=== PATIENT | male | born 1935 | race Caucasian/White ===

== ENCOUNTER 2019-09-16 14:26 | Outpatient (RCR) | payer OTHER, SELFPAY ==
--- NOTE | 2019-09-16 15:22 | PCPTNOTE ---
Physical Therapy Note 09-16-2019 Orders received for PT evaluation and treatment for lymphedema. Mr. Foley and his came to the PT Department today. He had questions about lymphedema and concerns about what the treatment would be. Discussed with him and educated on what treatment would involve: 2x/week, compression garment to legs. He stated since taking the increased water pill, the swelling in his legs has been less. And he is scheduled for a circulation test for his legs. I did look at his legs, there was slight edema over the ankles and tops of his feet, with redness of the toes, which were warm to touch. After about 25 minutes of discussion with Jitendra, he determined that his legs are OK now and does not want to begin treatment for them. Discussed with him that we will keep the PT order and if wants to pursue treatment, he can call and schedule an evaluation appointment. I issued him my name and the number here, to call for any questions, or to schedule an appointment. Please sign and return this note. Dr. Kristi Levine Date
--- NOTE | 2019-11-23 10:53 | PCPTNOTE ---
PHYSICAL THERAPY DISCHARGE 11-23-2019 Attending Provider: Dr. Kristi Levine Patient:Jitendra Foley Date of :1935 Mr. Foley has not returned for any further treatments since the initial therapy visit and discussion on 09/16/2019, therefore he will be discharged at this time. Thank you for referring [facility] to [facility]. Please review, sign, date and return this discharge summary SCOOTER. I have been updated about the patient's current status and I agree with discharge from the above service at this time. Referring Physician Date
== END 2019-09-18 08:29 | disposition home or self-care (01) ==
LOC: ANHPT 14:26
DX: I89.0 Lymphedema, not elsewhere classified (principal)
CPT/HCPCS: 99199

== ENCOUNTER 2022-06-12 10:51 | Emergency (ER) | payer OTHER, SELFPAY ==
[2022-06-12] VITALS (24 sets, daily range): BP systolic 98–144; BP diastolic 61–93; PULSE 69–83; RESP 9–48; TEMP 36.6; O2SAT 95–100
--- NOTE | ~2022-06-12 | XR_ITS ---
Clinical Indication: Leg swelling, CHF AP and lateral views of the chest: Comparison: 01/14/2019 Findings: There is mild bibasilar pulmonary edema. Cardiomediastinal silhouette is stable, status po st CABG with pacemaker device. Bones and soft tissues are unremarkable. Impression: Mild bibasilar pulmonary edema. Reviewed, dictated and finalized at location . Impression: Mild bibasilar pulmonary edema.
--- NOTE | ~2022-06-12 | US_ITS ---
EXAMINATION: US venous doppler [facility] DATE: 06/12/2022 14:10 INDICATION: Lower limb pain, swelling and erythema TECHNIQUE: Grayscale ultrasound images without and with compression and Doppler ultrasound images of the bilateral lower extremity veins were obtained. COMPARISON: None. FINDINGS: The visualized portions of right common femoral vein, profunda (deep) femoral vein, femoral vein, pop liteal vein, posterior tibial veins, peroneal veins, gastrocnemius vein and greater saphenous vein ou tflow are patent. The visualized portions of left common femoral vein, profunda femoral vein, femoral vein, popliteal v ein, posterior tibial veins, peroneal veins, gastrocnemius vein and greater saphenous vein outflow ar e patent. IMPRESSION: 1. No deep venous thrombosis in either lower limb. Reviewed, dictated and finalized at location L.
--- NOTE | 2022-06-12 12:23 | ECG_ITS ---
Measurements Intervals [place] Rate: 72 P: CO: 0 QRS: 98 QRSD: 170 T: -84 QT: 475 QTc: 521 Interpretive Statements ELECTRONIC ATRIAL PACEMAKER WITH INHIBITION ELECTRONIC VENTRICULAR PACEMAKER FUSION COMPLEXES RIGHT BUNDLE BRANCH BLOCK BASELINE ARTIFACT- I, II, III, AVR, AVL, AVF, V1 NO FURTHER INTERPRETATION IS POSSIBLE ATYPICAL ECG NO PREVIOUS ECG AVAILABLE FOR COMPARISON Electronically Signed On 06-12-2022 12:54:08 CDT by Elie Bell D.O.
[2022-06-12 12:43] LABS: Basophils Percent Auto 0.7 % (0.2-1.2); Eosinophils Absolute Auto 0.6 K/mm3 (0-0.3); Eosinophils Percent Auto 10.1 % (0-4.4); Hematocrit 34.6 % (42.0-52.0); Hemoglobin 10.8 g/dL (14.0-18.0); Immature Granulocyte Absolute 0.04 K/mm3 (0.00-0.031); Immature Granulocyte Percent A 0.7 % (0-0.5); Lymphocytes Absolute Auto 1.56 K/mm3 (0.9-3.2); Lymphocytes Percent Auto 26.4 % (18.3-44.2); Mean Corpuscular HGB Conc 31.2 g/dl (32-36); Mean Corpuscular Hemoglobin 31.2 pg (26-34); Mean Platelet Volume 9.9 fl (7.4-10.4); Monocytes Absolute Auto 0.5 K/mm3 (0.1-0.6); Monocytes Percent Auto 8.8 % (2.6-8.5); Neutrophils Absolute Auto 3.2 K/mm3 (1.3-6.7); Neutrophils Percent Auto 53.3 % (45.5-73.1); Platelet Count Result 152 k/mm3 (150-375); Red Blood Count 3.46 M/mm3 (4.6-6.20); Red Cell Distribution Width 15.6 % (11.5-14.5); White Blood Count 5.9 K/mm3 (4.5-10.0)
[2022-06-12 12:53] LABS: INR 1.3; Prothrombin Time 15.4 Seconds (11.1-14.7)
[2022-06-12 12:54] LABS: Alanine Aminotransferase 14 U/L (6-50); Albumin Level 4.1 g/dL (3.5-5.1); Alkaline Phosphatase 100 U/L (38-126); Anion Gap 6 mmol/L (8-16); Aspartate Amino Transferase 27 U/L (17-59); Blood Urea Nitrogen 31 mg/dL (9-20); Calcium 8.9 mg/dL (8.4-10.2); Carbon Dioxide 27 mmol/L (22-30); Chloride 102 mmol/L (98-107); Estimated CRCL calculation 21 ml/min; Estimated Glomerular Filt Rate 26; Glucose 106 mg/dL (65-110); Partial Thromboplastin Time 32.6 SECONDS (22.3-36.8); Potassium 3.9 mmol/L (3.4-5.0); Sodium 135 mmol/L (137-145)
--- NOTE | 2022-06-12 12:59 | ED.EXTPRO ---
HPI - Extremity Problem General Chief complaint: Extremity Problem,Nontraumatic Stated complaint: leg swelling Time Seen by Provider: 06/12/22 12:26 Source: patient Mode of arrival: ambulatory Limitations: no limitations History of Present Illness HPI Narrative: This is an 87-year-old male that presents to the emergency department for lower extremity edema ongoing over the last several weeks. Reports he has been evaluated by his primary for this. They tried to increase his dose of Lasix, but his swelling continues to worsen. Does report some redness of his lower extremities. Denies fevers, shortness of breath or chest pain. Related Data Home Medications Medication Instructions Recorded Confirmed furosemide 20 mg tablet 60 mg DAILY 06/12/22 Allergies Allergy/AdvReac Type Severity Reaction Status Date / Time Penicillins Allergy Unknown UNKNOWN Verified 06/12/22 12:34 Review of Systems Review of Systems: CONSTITUTIONAL: Denies fever CARDIOVASCULAR: Reports edema. Denies chest pain RESPIRATORY: Denies dyspnea. All systems reviewed & are unremarkable except as noted in HPI and below PMFSH Past Medical History Medical History (Updated 06/12/22 @ 16:16 by Karen Benavides PA-C) History of gastroesophageal reflux (GERD) History of hyperlipidemia History of hypertension History of hypothyroidism Social History Social History (Updated 06/12/22 @ 15:17 by Karen Benavides PA-C) Smoking status: Never smoker Exam Narrative: GENERAL: Well-appearing, well-nourished, and in no acute distress. HEAD: Normocephalic, atraumatic. EYES: EOMI. ENT: Mucous membranes moist. Oropharynx without tonsillar hypertrophy exudate or other lesions. NECK: Supple. No adenopathy or masses. CHEST: Mild rales in the bilateral lower lobes. No respiratory distress. No wheezes or rhonchi HEART: Regular rate and rhythm. No murmur heard. Normal peripheral pulses. EXTREMITIES: Normal range of motion. 2+ pitting edema to the bilateral lower extremities with mild overlying redness. Normal DP pulses SKIN: Warm, dry, no rash. NEURO: No focal deficits. Alert and oriented x3. PSYCH: Normal mood and affect Course Course Emergency Course: Patient and family updated on work-up. Offered admission for further diuresis. He does not wish to stay in the hospital at this time Consultations Consultation #1: Spoke with patient's primary about work-up. It does appear that his kidney function is about around baseline based on his previous labs they have. Reports he has responded to adding on metolazone in the past, but wanted to check this with nephrology before starting it Date: 06/12/22 Consultation #2: Spoke with patient's manager medical device, Dr. Dawn about patient and work-up. Patient will be started on metolazone 2.5 daily for the next week. He is then to call and check in for further management. He does have a follow up appointment scheduled Date: 06/12/22 Vital Signs Vital signs: Vital Signs Temperature 97.8 F 06/12/22 11:41 Pulse Rate 69 06/12/22 11:41 Respiratory Rate 14 06/12/22 11:41 Blood Pressure 98/61 L 06/12/22 11:41 Pulse Oximetry 99 06/12/22 11:41 Oxygen Delivery Room Air 06/12/22 11:41 Temperature 97.8 F 06/12/22 11:41 Pulse Rate 69 06/12/22 11:41 Respiratory Rate 14 06/12/22 11:41 Blood Pressure 98/61 L 06/12/22 11:41 Pulse Oximetry 99 06/12/22 11:41 Oxygen Delivery Room Air 06/12/22 11:41 MDM - Extremity (Nontraumatic) MDM Narrative Medical decision making narrative: Patient presents emergency department for lower extremity edema ongoing over the last couple of weeks. He denies any chest pain or shortness of breath. There is mild overlying redness bilaterally which is consistent with venous stasis changes. I do not suspect cellulitis at this time. He is afebrile and nontoxic-appearing. CBC without leukocytosis. Metabolic panel does show evidence of chronic kidney disease. Noted
[2022-06-12 13:05] LABS: NT Pro B Type Natriuretic Pept 7650 pg/mL (19.9-100); Troponin I < 0.012 ng/mL (0.000-0.034)
[2022-06-12] MEDS: FUROSEMIDE INJ 40 MG/4 ML VIAL IV PUSH (15:49)
== END 2022-06-12 17:08 | disposition home or self-care (01) ==
PROVIDERS: Emergency Medicine; Emergency Provider Physician Assistant; PCP Family Medicine
DX: R60.0 Localized edema (principal); I10 Essential (primary) hypertension; E78.5 Hyperlipidemia, unspecified; E03.9 Hypothyroidism, unspecified; K21.9 Gastro-esophageal reflux disease without esophagitis
CPT/HCPCS: 36415; 71046; 80053; 83880; 84484; 85025; 85610; 85730; 93005; 93970; 96374; 99284; J1940

== ENCOUNTER 2023-01-28 10:41 | Emergency (ER) | payer OTHER, SELFPAY ==
--- NOTE | ~2023-01-28 | CT_ITS ---
EXAMINATION: CT facial & cervical spine wo DATE: 01/28/2023 14:42 INDICATION: Fall. Left facial bruising, swelling TECHNIQUE: Computed tomography (CT) of the facial bones and maxillofacial region was performed withou t intravenous contrast. Automated exposure control and iterative reconstruction technique were employ ed. Exam dose: 681.00 mGy-cm total exam DLP. COMPARISON: None. FINDINGS: The nasal bones and anterior maxillary spine, frontozygomatic sutures, orbital rims and wal ls, zygomatic arches and maxillary bones are intact with the exception of severe thinning or destruct ion along the posterolateral inferior right maxillary sinus associated with nearly complete opacifica tion of the sinus, suggesting mucocele. 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 There is osteoarthritic change at the right temporal mandibula r joint as well. C1 and C2 are normally aligned and the odontoid process is intact. No fracture or dislocation or lock ed facet or prevertebral soft tissue swelling is detected. Very prominent anterior bridging osteophytes are noted in the cervical region from C3 through T1, wit h multilevel prominent degenerative disc disease and prominent degenerative change or fusion at the a pophyseal joints. Associated with the degenerative disc disease is mild retrolisthesis at C4-5 and C5-6. There is mild anterolisthesis at C3-4 and C6-7 and greater approximate 3 mm, anterolisthesis at C7-T1 . Bilaterally C5-6 prominent uncovertebral joint spurring on the right at C3-4 and C6-7. IMPRESSION: No facial fracture Severe thinning or destruction of the posterolateral inferior wall of the right maxillary sinus assoc iated with nearly complete opacification of the sinus, suggesting mild mucocele Severe cervical spondylosis; no cervical spine fracture is detected Reviewed, dictated and finalized at Location A. Reviewed, dictated and finalized at location B. IMPRESSION: No facial fracture Severe thinning or destruction of the posterolateral inferior wall of the right maxillary sinus associated with nearly complete opacification of the sinus, briceño ggesting mild mucocele Severe cervical spondylosis; no cervical spine fracture is detected
--- NOTE | ~2023-01-28 | CT_ITS ---
EXAMINATION: CT brain wo con DATE: 01/28/2023 14:42 INDICATION: Fall. Left facial bruising, swelling TECHNIQUE: Computed tomography (CT) of the head was performed without intravenous contrast. The mA wa s adjusted according to patient size. Iterative reconstruction technique was employed. Exam dose: 68 1.00 mGy-cm total exam DLP. COMPARISON: 01/14/2019 CT brain FINDINGS: Bilateral vertebral artery, basilar artery and bilateral carotid siphon internal carotid ar rosy calcifications. There is nonspecific diminished attenuation of the cerebral white matter, likely due to chronic small vessel ischemic changes. There is prominent cerebellar and central and cortical cerebral atrophy. No intracranial mass lesion or hemorrhage or cerebrovascular accident is detected. No midline shift o r mass effect. There is mild bilateral basal ganglia calcification, not likely of any clinical signif icance. No subdural or epidural hematoma is detected. There is nearly complete opacification of the right maxillary sinus. There is some thinning and outwa rd expansion of the inferolateral wall of the right maxillary sinus suggesting mucocele. The paranasal sinuses and mastoid air cells are otherwise unremarkable. No fracture or bone destruction of the cranial vault. IMPRESSION: Cerebral atherosclerosis and chronic small vessel ischemic changes of the cerebral white matter Cerebellar and central and cortical cerebral atrophy No acute intracranial finding or skull fracture Extensive opacification of right mastoid sinus with some thinning and outward expansion of the infero lateral wall of the sinus suggesting possible mucocele development Reviewed, dictated and finalized at Location A. Reviewed, dictated and finalized at location B. IMPRESSION: Cerebral atherosclerosis and chronic small vessel ischemic changes of the cerebral white matter Cerebellar and central and cortical cerebral atrophy No acute intracranial finding or skull fracture Extensive opacification of right mastoid sinus with some thinning and outward e xpansion of the inferolateral wall of the sinus suggesting possible mucocele de velopment
[2023-01-28 10:50] VITALS: BP 114/52; PULSE 74; RESP 18; TEMP 36.6; O2SAT 99
--- NOTE | 2023-01-28 12:13 | ED.FALL ---
HPI - Fall General Chief Complaint: Fall Stated Complaint: fall last noc Time Seen by Provider: 01/28/23 12:13 Source: patient and family Mode of arrival: ambulatory Limitations: no limitations History of Present Illness HPI Narrative: 87 years old white female was getting out of his car yesterday at 6 PM tripped in the door and fell on the left side of his body, no loss of consciousness, denies any head injury neck injury or back injury, complaining of laceration at the left lower leg below the knee and multiple abrasions and skin tears on the left upper extremity. Patient's could not take him to the hospital last night because she cannot see at night. Unknown last tetanus shot. Related Data Home Medications Medication Instructions Recorded Confirmed furosemide 20 mg tablet 60 mg DAILY 06/12/22 Allergies Allergy/AdvReac Type Severity Reaction Status Date / Time Penicillins Allergy Unknown UNKNOWN Verified 01/28/23 10:56 Review of Systems Review of Systems: All systems reviewed & are unremarkable except as noted in HPI and below PMFSH Past Medical History Medical History History of gastroesophageal reflux (GERD) History of hyperlipidemia History of hypertension History of hypothyroidism Social History Social History Smoking status: Never smoker Exam Narrative: General appearance: Well-developed, well-nourished Skin: Multiple skin avulsion at the left arm and left forearm. 10 cm laceration, subcutaneous, left lower leg below the knee laterally, 2 cm gapping. Head: Normocephalic, nontraumatic Eyes: Clear conjunctiva ENT: Oropharynx normal, left ear exam showed diffuse hematoma and laceration without gapping, edges well aligned Neck: Supple, nontender Chest and respiratory: Airway patent, no respiratory distress, no accessory muscle use Heart: Regular rate/rhythm Abdomen: Soft, nontender, no organomegaly, quiet bowel sounds Vascular: Normal peripheral pulses, normal capillary refill. Musculoskeletal: Normal range of motion, nontender back Neurologic: Alert and oriented ?3, MEDICARE INSURANCE SPECIALIST is normal as tested, no gross motor deficit Course Vital Signs Vital signs: Vital Signs Temperature 36.6 C 01/28/23 10:50 Pulse Rate 74 01/28/23 10:50 Respiratory Rate 18 01/28/23 10:50 Blood Pressure 114/52 L 01/28/23 10:50 Pulse Oximetry 99 01/28/23 10:50 Oxygen Delivery Room Air 01/28/23 10:50 Temperature 36.6 C 01/28/23 10:50 Pulse Rate 74 01/28/23 10:50 Respiratory Rate 18 01/28/23 10:50 Blood Pressure 114/52 L 01/28/23 10:50 Pulse Oximetry 99 01/28/23 10:50 Oxygen Delivery Room Air 01/28/23 10:50 MDM - Fall MDM Narrative Medical decision making narrative: Patient had a fall at 6 PM last night, which is 18 hours ago, physical examination as above Laceration left leg will be managed by irrigation, Steri-Strips, skin avulsion left upper extremity will be managed by nonadhesive dressing, a tetanus shot ordered, patient will be discharged on Levaquin for possible chondritis secondary to left ear contusion, hematoma and laceration. Differential Diagnosis Differential diagnosis: Likely concussion without loss of consciousness and other (Change facial contusion, facial bone fracture, skin avulsion, leg laceration, ear contusion with hematoma and laceration) Medical Records Attestation: I reviewed the patient's medical records. Imaging Data Attestation: I personally reviewed and interpreted this imaging study as follows: Radiologist's impression: Impressions Head CT 01/28/23 14:55 I
[2023-01-28] MEDS: TETANUS,DIPHTHERIA,AC PERTUSSIS ADULT (0.5 ML) BOOSTRIX IM (13:44)
== END 2023-01-28 15:52 | disposition home or self-care (01) ==
PROVIDERS: Emergency Provider Emergency Medicine; PCP Family Medicine
DX: S81.812A Laceration without foreign body, left lower leg, initial encounter (principal); E78.5 Hyperlipidemia, unspecified; I10 Essential (primary) hypertension; E03.9 Hypothyroidism, unspecified; Z23 Encounter for immunization; W01.0XXA Fall on same level from slipping, tripping and stumbling without subsequent striking against object, initial encounter
CPT/HCPCS: 70450; 70486; 72125; 90471; 90715; 99284

== ENCOUNTER 2023-03-15 08:17 | Observation (INO) | payer OTHER, SELFPAY ==
[2023-03-15] VITALS (11 sets, daily range): BP systolic 102–118; BP diastolic 52–70; PULSE 67–76; RESP 16–28; TEMP 36.3–36.6; O2SAT 95–99; BMI 24.7
--- NOTE | ~2023-03-15 | CT_ITS ---
Non-contrast Head CT History: Head injury COMPARISON: 01/28/2023 Technique: Axial non-contrast imaging of the brain was performed. Dose reduction technique was used on this scan by utilizing automated exposure control and iterative reconstruction technique. The dose -length product (DLP) was 605.33 mGy-cm. Findings: There are bilateral moderate-sized mixed acute and subacute subdural hematomas along the ce rebral convexities, with hyperdense acute hemorrhage predominantly layering posteriorly. Right subdur al hematoma measures 1.9 cm in thickness, and the left subdural hematoma measures 2.1 cm in thickness . No midline shift. No distinct parenchymal abnormality the brain seen. The ventricles are probably m inimally dilated. The calvarium appears normal. There is right maxillary sinus disease, unchanged. T he remaining visualized paranasal sinuses and mastoid air cells are clear. Impression: Moderate bilateral mixed acute and subacute subdural hematomas, as detailed above. No midline shift. Findings discussed with Dr. Lee the time of this reading. Reviewed, dictated and finalized at location [facility]. NOGRAPHER PHYSICAL Impression: Moderate bilateral mixed acute and subacute subdural hematomas, as detailed abo ve. No midline shift. Findings discussed with Dr. Lee the time of this reading.
--- NOTE | ~2023-03-15 | CT_ITS ---
Noncontrast CT scan of the cervical spine Technique: Multiple contiguous axial [address] images of the cervical spine were obtained and rec onstructed in 2D sagittal and coronal planes on the acquisition scanner. Dose reduction technique was used on this scan by utilizing automated exposure control, adjustment of the mA and/or kV according to patient size. The dose-length product (DLP) was 299.36 mGy-cm. Clinical History: Pain Findings: No acute fracture seen. There is minimal grade 1 anterolisthesis of C6 over C7. There are e xtensive flowing, somewhat diffuse anterior osteophytes extending from C3 through C7. There is fusion of the right facet joints from C3 through C5. There is severe degenerative disc narrowing at C5-C6, with moderate degenerative disc change at the remaining cervical levels. There is moderate degenerati ve change at the articulation of the odontoid process with the anterior arch of C1. There is probable mild right neural foraminal narrowing at C2-C3 related to prominent right facet art hropathy. There is right neural foraminal narrowing at C3-C4, again with probable right facet arthrop athy. There is right neural foraminal narrowing at C4-C5, with facet arthropathy. There is bilateral neural foraminal narrowing, left worse than right, at C5-C6, with bilateral facet arthropathy and sma ll disc osteophyte complex. No prevertebral soft tissue swelling. Impression: No acute fracture. Minimal grade 1 anterolisthesis of C6 over C7. Extensive degenerative spondylosis, as well as probable DISH, as detailed above. Reviewed, dictated and finalized at [facility]. [employer] Impression: No acute fracture. Minimal grade 1 anterolisthesis of C6 over C7. Extensive degenerative spondylosis, as well as probable DISH, as detailed above .
--- NOTE | ~2023-03-15 | CT_ITS ---
EXAMINATION: CT abdomen pelvis wo con DATE: 03/15/2023 09:53 INDICATION: Abdominal pain TECHNIQUE: Computed tomography (CT) of the abdomen and pelvis was performed without intravenous contr ast. The dose-length product (DLP) was 912.24 mGy-cm. Automated exposure control and iterative recons truction technique were employed. COMPARISON: 01/14/2019 FINDINGS: Cardiomegaly is noted. There are airspace opacities of the lower lobes and right middle lob e. Small pleural effusions are present. There is a small sliding hiatal hernia. There is moderate int rahepatic and extrahepatic biliary dilatation. There are stones of the common bile duct as well as a 10 mm stone at the ampulla. The gallbladder is mildly distended. There is atrophy of the kidneys. Cys ts of the kidneys measure up to 3 cm on the right. There is a 5 mm nonobstructing stone of the left k idney lower pole. The spleen, pancreas, and adrenal glands are normal. There is a 3.6 cm fusiform inf rarenal abdominal aortic aneurysm with chronic demonstrated dissection. No pathologically enlarged ab dominal or pelvic lymph nodes are identified. No free intraperitoneal gas or evidence of bowel obstru ction. There are chronic diverticula of the urinary bladder including a large diverticulum of the lef t bladder wall. There is mild inflammatory stranding surrounding the urinary bladder. There is severe lumbar spondylosis. IMPRESSION: 1. Choledocholithiasis with moderate intrahepatic and extrahepatic biliary dilatation. 2. Pneumonia of the lower lobes and right middle lobe. 3. Possible cystitis. 4. 3.6 cm fusiform infrarenal abdominal aortic aneurysm. Reviewed, dictated and finalized at location [facility]. [facility]FA[facility]OST[facility] IMPRESSION: 1. Choledocholithiasis with moderate intrahepatic and extrahepatic biliary dila tation. 2. Pneumonia of the lower lobes and right middle lobe. 3. Possible cystitis. 4. 3.6 cm fusiform infrarenal abdominal aortic aneurysm.
--- NOTE | 2023-03-15 08:37 | ED.FALL ---
HPI - Fall General Chief Complaint: Fall Stated Complaint: fall History of Present Illness HPI Narrative: 87-year-old male presenting to the emergency department for evaluation after having 2 falls from bed. Patient states over the last few days he has had decreased p.o. intake. Patient reports he had a fall from bed last night and had another fall from bed this morning. Patient does have multiple skin tears but denies any pain or injury other than the skin tears. Family states the patient has been having worsening dementia and increased gait instability. Patient has had multiple visits to [facility] for falls as well. Related Data Home Medications Medication Instructions Recorded Confirmed furosemide 20 mg tablet 60 mg PO DAILY 06/12/22 03/15/23 allopurinol 100 mg tablet 200 mg PO HS 03/15/23 03/15/23 amiodarone 200 mg tablet 200 mg PO DAILY 03/15/23 03/15/23 calcitriol 0.25 mcg capsule 0.25 mcg PO DAILY 03/15/23 03/15/23 finasteride 5 mg tablet 5 mg PO DAILY 03/15/23 03/15/23 gabapentin 100 mg capsule 100 mg PO HS 03/15/23 03/15/23 levothyroxine 50 mcg tablet 75 mcg PO DAILY 03/15/23 03/15/23 metoprolol succinate 50 mg 50 mg PO DAILY 03/15/23 03/15/23 tablet,extended release 24 hr oxycodone-acetaminophen 10 mg-325 1 tablet PO QID 03/15/23 03/15/23 mg tablet pantoprazole 20 mg tablet,delayed 20 mg PO Q12H 03/15/23 03/15/23 release tamsulosin 0.4 mg capsule 0.4 mg PO DAILY 03/15/23 03/15/23 Allergies Allergy/AdvReac Type Severity Reaction Status Date / Time No Known Allergies Allergy Verified 03/15/23 13:06 Review of Systems Review of Systems: All systems reviewed & are unremarkable except as noted in HPI and below PMFSH Past Medical History Medical History History of gastroesophageal reflux (GERD) History of hyperlipidemia History of hypertension History of hypothyroidism Social History Social History Smoking status: Never smoker Spiritual care concerns: No Exam Narrative: APPEARANCE: Well appearing, no pain, no distress, well-nourished. HEAD: normocephalic, atraumatic. EYES: PERRLA/EOMI, conjunctivae clear. NOSE: Normal no drainage EARS:TMS clear with good light reflex. THROAT: Pharynx clear, no exudate. NECK: Supple. No adenopathy, no masses. RESPIRATORY: Airway patent, respirations nonlabored. Clear to auscultation bilaterally, no rales, rhonchi, wheezing. CARDIOVASCULAR: Regular rate and rhythm without murmurs rubs or gallops. ABDOMINAL: Soft, nontender, nondistended, normal bowel sounds MUSCULOSKELETAL: Moves all extremities. Strength/ROM intact, No edema, No calf tenderness. NEURO: Alert. Cranial nerves II through XII intact. Good gait. Good coordination SKIN: 2 skin tears to left arm and 1 skin tear to right arm Course Course Emergency Course: 87-year-old male presenting to the ED for evaluation after having multiple ground level falls. The skin tears were repaired with Steri-Strips. head CT did show acute versus subacute bilateral subdural hematomas. Patient is DNI DNR. I discussed the option of transfer to a tertiary care center for potential surgery and family does not want to pursue surgery at this time. Family is interested in pursuing comfort care at this time. I did talk to Dr. Henry from Neurosurgery and since the family does not want to pursue surgery and they are fully aware of the risks of declining including seizures and potential he feels the patient can be kept here since there is no surgical issue. Care coordination was consulted and patient will be made comfort care. Patient's abdominal CT also showed evidence of pneumonia, cystitis and of choledocholithiasis. Patient will be treated with Levaquin and Flagyl in the emergency department and the daughter was informed that antibiotics are not typically part of comfort care and that the anti
[2023-03-15 09:22] LABS: Basophils Percent Auto 0.2 % (0.2-1.2); Eosinophils Percent Auto 0.1 % (0-4.4); Hematocrit 30.9 % (42.0-52.0); Hemoglobin 9.9 g/dL (14.0-18.0); Immature Granulocyte Absolute 0.08 K/mm3 (0.00-0.031); Immature Granulocyte Percent A 0.6 % (0-0.5); Lymphocytes Absolute Auto 0.96 K/mm3 (0.9-3.2); Lymphocytes Percent Auto 7.6 % (18.3-44.2); Mean Corpuscular Hemoglobin 31.4 pg (26-34); Mean Corpuscular Volume 98.1 fl (80-100); Mean Platelet Volume 10.5 fl (7.4-10.4); Monocytes Absolute Auto 0.5 K/mm3 (0.1-0.6); Monocytes Percent Auto 3.8 % (2.6-8.5); Neutrophils Absolute Auto 11.1 K/mm3 (1.3-6.7); Neutrophils Percent Auto 87.7 % (45.5-73.1); Platelet Count Result 206 k/mm3 (150-375); Red Blood Count 3.15 M/mm3 (4.6-6.20); White Blood Count 12.6 K/mm3 (4.5-10.0)
[2023-03-15 09:33] LABS: Alanine Aminotransferase 41 U/L (6-50); Albumin Level 3.4 g/dL (3.5-5.1); Alkaline Phosphatase 535 U/L (38-126); Anion Gap 11 mmol/L (8-16); Aspartate Amino Transferase 96 U/L (17-59); Bilirubin,Total 2.9 mg/dL (0.2-1.3); Blood Urea Nitrogen 43 mg/dL (9-20); Calcium 8.9 mg/dL (8.4-10.2); Carbon Dioxide 21 mmol/L (22-30); Chloride 104 mmol/L (98-107); Estimated CRCL calculation 17 ml/min; Estimated Glomerular Filt Rate 25; Glucose 128 mg/dL (65-110); INR 1.1; Potassium 4.3 mmol/L (3.4-5.0); Prothrombin Time 14.7 Seconds (11.1-14.7); Sodium 136 mmol/L (137-145)
[2023-03-15 09:34] LABS: Partial Thromboplastin Time 31.5 SECONDS (22.3-36.8)
[2023-03-15 09:35] LABS: Lactic Acid Reflex 1.7 mmol/L (0.7-2.0)
[2023-03-15 10:01] LABS: Influenza A QL RT-PCR Negative (Negative); Influenza B QL RT-PCR Negative (Negative); RSV RNA, RT-PCR Negative (Negative); SARS-CoV-2 RNA PCR Negative (Negative)
--- NOTE | 2023-03-15 10:43 | PC.NURSE ---
Attempted to straight cath pt, when inserting catheter it did not want to advance. I removed catheter and alerted Héctor, nurse, of situation and that I was not able to obtain urine.
[2023-03-15] MEDS: SODIUM CHLORIDE 0.9% IV 1,000 ML 999 ML IV CONT (11:00)
[2023-03-15] MEDS: metroNIDAZOLE 500 MG/ISO 100ML 500 MG/100 ML BAG 100 MG IVPB ×3 (11:05→23:47)
--- NOTE | 2023-03-15 11:36 | PCCCNOTE ---
After speaking with pt's spouse and daughter (Sohail Moreira [phone]), [facility] A referral was called in and information was faxed.
--- NOTE | 2023-03-15 11:42 | PC.NURSE ---
tech attempted to cath pt and met resistance so stopped, ERP notified and pt bladder scanned and 0ml noted in bladder
[2023-03-15] MEDS: levoFLOXacin 750 MG/D5W 150 ML 750 MG/150 ML BAG 100 MG IVPB (12:10)
[2023-03-15] MEDS: SODIUM CHLORIDE 0.9% IV 1,000 ML 125 ML IV CONT (12:12)
--- NOTE | 2023-03-15 12:42 | ADMGEN ---
This patient, Jitendra Foley, was admitted to 3 Med Surg Room 315-01. Patient/family oriented to hospital policies and general routines including ID bracelet, bed and alarms, visiting hours, pain management, procedures, bathroom and other care routines, personal items, smoking policy, room service/diet, and visiting hours. Information on how to activate the Rapid Response Team has been discussed. Patient/Family are encouraged to report perceived risks to care and to ask questions if they do not understand what they are told or what they should do.
--- NOTE | 2023-03-15 13:48 | PCOTNOTE ---
Pt. needs further workup prior to being seen for therapy evaluation due to safety concerns.
--- NOTE | 2023-03-15 14:30 | PCPTNOTE ---
Pt just admitted to the hospital. Waiting on complete work up prior to PT evaluation. Will follow.
--- NOTE | 2023-03-15 16:00 | PM.IMHP ---
H&P: HPI History of Present Illness Date/Time: 03/15/23 13:45 Chief Complaint: Fall. Narrative: This is a very pleasant 87-year-old male with paroxysmal atrial fibrillation status post permanent pacemaker insertion, coronary artery disease with history of stents, benign prostatic hyperplasia, hypothyroidism, and chronic kidney disease who presented to the emergency department via EMS from home for evaluation after a fall. The patient provides the following history and his and daughter provides additional information, with the patient's permission. He has had several falls over the last couple of months and he was reportedly seen in in ED at an outside facility about a month ago after falling and striking his head. At that time a brain CT was reportedly normal and he was discharged home. He has become increasingly weak over time and family members report that he is losing weight and sleeping a lot during the day. The last several days he has had little to no appetite and has had poor oral intake. In the last 24 hours he has had 2 falls and this morning he reportedly fell when trying to get out of bed striking the right side of his head. There was no loss of consciousness. Family members were unable to help him up. He was brought in for evaluation and brain CT done on arrival showed moderate bilateral mixed acute and subacute subdural hematomas with no evidence of midline shift. He complained of some abdominal discomfort as well although he denies this to me, and CT scan showed choledocholithiasis with moderate intrahepatic and extrahepatic biliary dilatation as well as findings of pneumonia in the lower lobes and right middle lobes. The patient and his family are not interested in transfer to another facility for possible intervention and instead he would like to be comfortable. They are okay with IV fluids, antibiotics, and analgesics as needed. A local hospice group came to evaluate him and reported that he did not meet criteria for inpatient hospice. Family members may consider meeting with a different hospice group tomorrow depending on how his night goes. At the time my evaluation the patient request something to drink and may be a bit of something to eat. He denies headache, visual changes, focal weakness, paresthesias, chest pain, shortness a breath, nausea, vomiting, and abdominal pain. Review of Systems Review of Systems: Twelve systems were reviewed and are negative except for as per HPI. [facility] Past Medical History Medical History (Updated 03/15/23 @ 18:31 by Rosalia White PA-C) Benign prostatic hyperplasia Chronic kidney disease Coronary artery disease Gastroesophageal reflux disease Hyperlipidemia Hypertension Hypothyroidism Traumatic amputation of fifth toe Surgical History Surgical History (Updated 03/15/23 @ 18:28 by Rosalia White PA-C) History of coronary artery stent placement History of open reduction and internal fixation (ORIF) procedure Repair of ankle fracture History of permanent cardiac pacemaker placement Family History Family History (Updated 03/15/23 @ 18:28 by Rosalia White PA-C) Other Family history non-contributory Social History Social History (Updated 03/15/23 @ 18:28 by Rosalia White PA-C) Social History: Surrogate medical decision maker: Donna Foley, spouse. Code status: Do not resuscitate. Smoking status: Never smoker Alcohol intake: never Substance use: never Additional living arrangements comments: Lives with spouse in [place]. Additional occupation/education comments: Retired from [employer]. Spiritual care concerns: No Meds Home Medications and Allergies Home Medications Medication Instructions Recorded Confirmed Type furosemide 20 mg tablet 60 mg PO DAILY 06/12/22 03/15/23 History metolazone 2.5 mg tablet 2.5 mg PO DAILY 1 week #7 tabs 06/12/22 03/15/23 Rx allopurinol 100 mg tablet 200 mg PO HS 03/15/23 03/15/23 History ami
[2023-03-15 16:14] LABS: Appearance Urine Cloudy (Clear); Bacteria Urine None Seen /hpf; Bilirubin Urine 1+ (Negative); Blood Urine 1+ (Negative); Color Urine Dark Yellow (Yellow); Glucose Urine UA Negative (Negative); Hyaline Casts Urine Present /lpf; Ketones Urine Trace mg/dL (Negative); Leukocyte Esterase Ur 1+ LEU/UL (Negative); Nitrate Urine Negative (Negative); Protein Urine 1+ mg/dL (Negative); Specific Grav Ur 1.017 (1.001-1.035); Squamous Epithelial Cell Urine None seen /hpf (Few); WBC Urine 21-50 /hpf; pH Urine 5.5 (5.0-9.0)
[2023-03-15 16:15] LABS: Add Urine Microscopic? YES
[2023-03-15] MEDS: oxyCODONE/ACETAMINOPHEN (*CRX) 10-325 MG TABLET 1 TAB PO (20:19)
[2023-03-15] MEDS: GABAPENTIN 100 MG CAPSULE PO (20:20)
[2023-03-15] MEDS: PANTOPRAZOLE SOD SESQUIHYDRATE 20 MG TAB PO (20:20)
[2023-03-16] MEDS: metroNIDAZOLE 500 MG/ISO 100ML 500 MG/100 ML BAG 100 MG IVPB ×2 (05:14→12:07)
[2023-03-16] MEDS: LEVOTHYROXINE SODIUM 75 MCG TABLET PO (05:14)
[2023-03-16 06:00] VITALS: BP 106/56; PULSE 66; RESP 16; TEMP 36.7; O2SAT 97
[2023-03-16 06:57] LABS: Hematocrit 27.4 % (42.0-52.0); Hemoglobin 8.5 g/dL (14.0-18.0); Mean Corpuscular Hemoglobin 30.8 pg (26-34); Mean Corpuscular Volume 99.3 fl (80-100); Mean Platelet Volume 10.7 fl (7.4-10.4); Platelet Count Result 181 k/mm3 (150-375); Red Blood Count 2.76 M/mm3 (4.6-6.20); White Blood Count 7.4 K/mm3 (4.5-10.0)
[2023-03-16 07:06] LABS: Alanine Aminotransferase 32 U/L (6-50); Albumin Level 2.9 g/dL (3.5-5.1); Alkaline Phosphatase 396 U/L (38-126); Anion Gap 8 mmol/L (8-16); Aspartate Amino Transferase 70 U/L (17-59); Bilirubin,Total 1.9 mg/dL (0.2-1.3); Blood Urea Nitrogen 39 mg/dL (9-20); Calcium 8.3 mg/dL (8.4-10.2); Carbon Dioxide 22 mmol/L (22-30); Chloride 107 mmol/L (98-107); Estimated CRCL calculation 20 ml/min; Estimated Glomerular Filt Rate 30; Glucose 85 mg/dL (65-110); Potassium 3.6 mmol/L (3.4-5.0); Sodium 137 mmol/L (137-145)
--- NOTE | 2023-03-16 08:26 | PM.IMPN ---
Progress Note: A&P Assessment and Plan (1) Subdural hematoma: Code(s): S06.5XAA - Traumatic subdural hemorrhage with loss of consciousness status unknown, initial encounter Status: Acute (2) Choledocholithiasis: Code(s): K80.50 - Calculus of bile duct without cholangitis or cholecystitis without obstruction Status: Acute (3) Pneumonia: Code(s): J18.9 - Pneumonia, unspecified organism Status: Acute (4) Abnormal urinalysis: Code(s): R82.90 - Unspecified abnormal findings in urine Status: Acute (5) Chronic kidney disease: Code(s): N18.9 - Chronic kidney disease, unspecified Status: Acute Plan acute on subacute bilateral subdural hematomas The patient presented to the emergency department for evaluation after a fall as detailed in HPI. Labs, imaging, EKG, and all reports were personally reviewed. Brain CT showed acute on subacute bilateral subdural hematomas. The patient and his family members declined transfer to tertiary care facility as they are not interested in aggressive or invasive procedures. They are aware that his condition may worsen to the point of seizures or even . Currently he is alert and oriented x4. choledocholithiasis with intrahepatic and extrahepatic biliary dilatation CT scan of the abdomen showed choledocholithiasis with intrahepatic and extrahepatic biliary dilatation and his LFTs are a bit elevated. At the time my evaluation his abdominal exam is benign, he has no complaints of abdominal pain, and is in fact asking for food. Should his condition change, they may consider GI consultation depending on how he has progressed regarding the above. community-acquired pneumonia pneumonia was noted on CT on levofloxacin in the emergency department. Metronidazole was also started Acute renal failure and dehydration both of those will be continued for now. cautiously hydrated overnight. BUN creatinine slightly trending down Hold furosemide and metolazone History of AFib Continue amiodarone 200 mg daily p.o. Hypothyroidism continue Synthroid 75 mcg daily p.o. hospice eval patient today, they will set up home hospice. Patient will be discharged to home hospice today Subjective Date/time seen: 03/16/23 08:26 Interval history: I saw and examined patient today. Patient has no complaints, denies headache, vision change, abdomen pain. Denies new focal weakness Exam Narrative: GENERAL: Pleasant, in no acute distress. Well-nourished. - EYES: EOMI. Mild jaundice - HENT: Moist mucous membranes. - LUNGS: Clear to auscultation bilaterally, no wheezing, rhonchi, or rales. - CARDIOVASCULAR: Regular rate and rhythm. No murmur. No JVD. - ABDOMEN: Soft, non-tender and non-distended. No palpable masses. - EXTREMITIES: No edema. Peripheral pulses 2+. Non-tender. - NEUROLOGIC: No new focal neurological deficits. Residual right arm weakness, no new focal weakness of left arm, pulse lower extremities cN II-XII grossly intact. - PSYCHIATRIC: Awake, Alert and oriented x 3. Appropriate mood and affect. - SKIN: No rashes or lesions. Warm. - LYMPH: No cervical lymphadenopathy.. Objective Data Vital Signs Vital Signs: Vital Signs - 24 hr 03/15/23 08:38 03/15/23 09:01 03/15/23 09:32 Temperature 97.6 F Pulse Rate 70 72 69 Respiratory Rate 20 19 20 Blood Pressure 108/56 L 102/52 L 109/53 L Pulse Oximetry 96 96 97 Oxygen Delivery 03/15/23 10:30 03/15/23 10:45 03/15/23 11:00 Temperature 97.6 F Pulse Rate 73 70 76 Respiratory Rate 24 H 28 H 25 H Blood Pressure 108/68 Pulse Oximetry 96 98 97 Oxygen Delivery 03/15/23 11:15 03/15/23 11:30 03/15/23 13:08 Temperature 97.4 F L Pulse Rate 70 70 Respiratory Rate 20 19 Blood Pressure 110/70 Pulse Oximetry 99 99 Oxygen Delivery Room Air 03/15/23 14:00 03/15/23 20:00 03/15/23 22:00 Temperature 97.7 F 97.8 F Pulse Rate 73 70 Respiratory Rate 20 16 B
[2023-03-16 09:08] VITALS: PULSE 78
[2023-03-16] MEDS: FINASTERIDE 5 MG TABLET PO (09:08)
[2023-03-16] MEDS: AMIODARONE HCL 200 MG TABLET PO (09:08)
[2023-03-16] MEDS: TAMSULOSIN HCL 0.4 MG CAPSULE PO (09:08)
[2023-03-16] MEDS: PANTOPRAZOLE SOD SESQUIHYDRATE 20 MG TAB PO (09:08)
[2023-03-16 09:09] VITALS: PULSE 78
[2023-03-16] MEDS: METOPROLOL SUCCINATE EXT REL 50 MG TABCR PO (09:09)
[2023-03-16] MEDS: calcitrioL 0.25 MCG CAPSULE PO (09:09)
--- NOTE | 2023-03-16 13:47 | PM.DS ---
DS: Admitting Diagnosis Discharge Date 03/16/23 Admitting Diagnosis (1) Subdural hematoma: ?Code(s): S06.5XAA - Traumatic subdural hemorrhage with loss of consciousness status unknown, initial encounter ?Status:?Acute (2) Choledocholithiasis: ?Code(s): K80.50 - Calculus of bile duct without cholangitis or cholecystitis without obstruction ?Status:?Acute (3) Pneumonia: ?Code(s): J18.9 - Pneumonia, unspecified organism ?Status:?Acute (4) Abnormal urinalysis: ?Code(s): R82.90 - Unspecified abnormal findings in urine ?Status:?Acute (5) Chronic kidney disease: ?Code(s): N18.9 - Chronic kidney disease, unspecified ?Status:?Acute DS: Discharge Diagnosis Discharge Diagnosis (1) Subdural hematoma: Code(s): S06.5XAA - Traumatic subdural hemorrhage with loss of consciousness status unknown, initial encounter Status: Acute (2) Choledocholithiasis: Code(s): K80.50 - Calculus of bile duct without cholangitis or cholecystitis without obstruction Status: Acute (3) Pneumonia: Code(s): J18.9 - Pneumonia, unspecified organism Status: Acute (4) Abnormal urinalysis: Code(s): R82.90 - Unspecified abnormal findings in urine Status: Acute (5) Chronic kidney disease: Code(s): N18.9 - Chronic kidney disease, unspecified Status: Acute DS: Summary Hospital Course Hospital Course: Per H&P, this is a very pleasant 87-year-old male with paroxysmal atrial fibrillation status post permanent pacemaker insertion, coronary artery disease with history of stents, benign prostatic hyperplasia, hypothyroidism, and chronic kidney disease who presented to the emergency department via EMS from home for evaluation after a fall. The patient provides the following history and his and daughter provides additional information, with the patient's permission. He has had several falls over the last couple of months and he was reportedly seen in in ED at an outside facility about a month ago after falling and striking his head. At that time a brain CT was reportedly normal and he was discharged home. He has become increasingly weak over time and family members report that he is losing weight and sleeping a lot during the day. The last several days he has had little to no appetite and has had poor oral intake. In the last 24 hours he has had 2 falls and this morning he reportedly fell when trying to get out of bed striking the right side of his head. There was no loss of consciousness. Family members were unable to help him up. He was brought in for evaluation and brain CT done on arrival showed moderate bilateral mixed acute and subacute subdural hematomas with no evidence of midline shift. He complained of some abdominal discomfort as well although he denies this to me, and CT scan showed choledocholithiasis with moderate intrahepatic and extrahepatic biliary dilatation as well as findings of pneumonia in the lower lobes and right middle lobes. The patient and his family are not interested in transfer to another facility for possible intervention and instead he would like to be comfortable. They are okay with IV fluids, antibiotics, and analgesics as needed. A local hospice group came to evaluate him and reported that he did not meet criteria for inpatient hospice. Family members may consider meeting with a different hospice group tomorrow depending on how his night goes. At the time my evaluation the patient request something to drink and may be a bit of something to eat. He denies headache, visual changes, focal weakness, paresthesias, chest pain, shortness a breath, nausea, vomiting, and abdominal pain. The following med issues have been addressed during hospitalization acute on subacute bilateral subdural hematomas The patient presented to the emergency department for evaluation after a fall as detailed in HPI. Labs, imaging, EKG, and all reports were personally revi
== END 2023-03-16 14:50 | disposition hospice, home (50) ==
LOC: ANHED 09:58 → ANH3MEDSUR 12:56
PROVIDERS: Physician Assistant; Admitting Provider Hospitalist; Emergency Provider Emergency Medicine; PCP Family Medicine; Visit Provider Hospitalist
DX: S06.5XAA Traumatic subdural hemorrhage with loss of consciousness status unknown, initial encounter (principal); W19.XXXA Unspecified fall, initial encounter; K80.50 Calculus of bile duct without cholangitis or cholecystitis without obstruction; J18.9 Pneumonia, unspecified organism; R82.90 Unspecified abnormal findings in urine; I12.9 Hypertensive chronic kidney disease with stage 1 through stage 4 chronic kidney disease, or unspecified chronic kidney disease; N18.9 Chronic kidney disease, unspecified; E86.0 Dehydration; I48.0 Paroxysmal atrial fibrillation; R26.89 Other abnormalities of gait and mobility; Z20.822 Contact with and (suspected) exposure to COVID-19; M47.812 Spondylosis without myelopathy or radiculopathy, cervical region; F03.90 Unspecified dementia, unspecified severity, without behavioral disturbance, psychotic disturbance, mood disturbance, and anxiety; R63.0 Anorexia; Z68.24 Body mass index [BMI] 24.0-24.9, adult; Z95.0 Presence of cardiac pacemaker; N40.0 Benign prostatic hyperplasia without lower urinary tract symptoms; I25.10 Atherosclerotic heart disease of native coronary artery without angina pectoris; Z95.5 Presence of coronary angioplasty implant and graft; K83.9 Disease of biliary tract, unspecified; K21.9 Gastro-esophageal reflux disease without esophagitis; I71.43 Infrarenal abdominal aortic aneurysm, without rupture; E78.5 Hyperlipidemia, unspecified; E03.9 Hypothyroidism, unspecified; Z66 Do not resuscitate; Z79.891 Long term (current) use of opiate analgesic; Z79.899 Other long term (current) drug therapy
CPT/HCPCS: 36415; 70450; 72125; 74176; 80053; 81001; 83605; 83735; 85025; 85027; 85610; 85730; 87086; 87088; 87637; 96361; 96365; 96366; 96367; 96376; 97161; 97165; 99285; A9270; G0378; J1836; J1956; J7030